=== PATIENT | male | born 1960 | race African-American/Black ===

== ENCOUNTER 2018-06-08 08:45 | Inpatient (IN) | payer OTHER ==
[2018-06-08 09:25] VITALS: BMI 25.7
--- NOTE | 2018-06-08 09:39 | HP ---
COWS - Scale Resting Pulse: 0= [place] 80 or Below Sweatin= Chills/Flushing Restless Observation: 3= Extraneous Movement Pupil Size: 1= Pupils >than Normal Bone or Joint Aches: 2= Severe Diffuse Aches Runny Nose/ Eye Tearin= Runny Nose/Eyes GI Upset > 30mins: 2= Nausea/Diarrhea Tremor Observation: 2= Slight Tremor Visible Yawning Observation: 2= >3x During Session Anxiety or Irritability: 2=Irritable/Anxious Goose Flesh Skin: 0=Smooth Skin COWS Score: 17 CIWA Score Nausea/Vomitin Muscle Tremors: 2 Anxiety: 2 Agitation: 2 Paroxysmal Sweats: 1-Minimal Palms Moist Orientation: 0-Oriented Tacttile Disturbances: 1-Very Mild Itch/Numbness Auditory Disturbances: 1-Very Mild Visual Disturbances: 0-None Headache: 2-Mild CIWA-Ar Total Score: 13 - Admission Criteria OASAS Guidelines: Admission for Medically Managed Detox: Requires at least one of the followin. CIWA greater than 12 2. Seizures within the past 24 hours 3. Delirium tremens within the past 24 hours 4. Hallucinations within the past 24 hours 5. Acute intervention needed for co occurring medical disorder 6. Acute intervention needed for co occurring psychiatric disorder 7. Severe withdrawal that cannot be handled at a lower level of care (continued vomiting, continued diarrhea, abnormal vital signs) requiring intravenous medication and/or fluids 8. Patient presents the following: CIWA greater than 12 Admission Criteria Met: Admission criteria met Admission ROS [facility] Chief Complaint: i need help to stop using heroin ,alcohol,cocaine Allergies/Adverse Reactions: Allergies Allergy/AdvReac Type Severity Reaction Status Date / Time penicillin G Allergy Severe Hives Verified 06/08/18 09:51 History of Present Illness: this 57 years old male with heroin,alcohol and cociane dependence,seeking detox, withdrawal symptom,last detox in 2018 in [place] nicotine dependence weight loss longest period of sobriety 3 years multiple admissions in detox but keep relapsing low back pain,left sciatica - Ebola screening Have you traveled outside of the country in the last 21 days: No (N) Have you had contact with anyone from an Ebola affected area: No Have you been sick,other than usual withdrawal symptoms: No Do you have a fever: No - Review of Systems Constitutional: Chills, Loss of Appetite, Malaise, Night Sweats, Changes in sleep, Weakness, Unintentional Wgt. Loss EENT: reports: Tearing, Nose Congestion Respiratory: reports: No Symptoms reported Cardiac: reports: No Symptoms Reported GI: reports: Diarrhea, Nausea, Vomiting, Abdominal cramping Musculoskeletal: reports: Back Pain, Joint Pain, Muscle Pain, Joint Stiffness Integumentary: reports: Dryness Neuro: reports: Headache, Tremors Endocrine: reports: No Symptoms Reported Hematology: reports: No Symptoms Reported Psychiatric: reports: No Sypmtoms Reported, Judgement Intact, Mood/Affect Appropiate, Orientated x3 Other Systems: Reviewed and Negative Patient History - Patient Medical History Hx Anemia: No Hx Asthma: No Hx Chronic Obstructive Pulmonary Disease (COPD): No Hx Cancer: No Hx Cardiac Disorders: No Hx Hypertension: No Hx Hypercholesterolemia: No Hx Pacemaker: No HX Cerebrovascular Accident: No Hx Seizures: No Hx Dementia: No Hx Diabetes: No Hx Gastrointestinal Disorders: No Hx Liver Disease: No Hx Genitourinary Disorders: No Hx Sexually Transmitted Disorders: No Hx Renal Disease (ESRD): No Hx Thyroid Disease: No Hx Human Immunodeficiency Virus (HIV): No (last 03/25 negative) Hx Hepatitis C: No Hx Depression: No Hx Suicide Attempt: No (denies) Hx Bipolar Disorder: No Hx Schizophrenia: No Other Medical History: no suicidal,no homicidal - Patient Surgical History Past Surgical History: No Hx Neurologic Surgery: No Hx Cataract Extraction: No Hx Cardiac Surgery: No Hx Lung Surgery: No Hx Breast Surgery: No Hx Breast Biopsy: No Hx Abdominal Surgery: No Hx Appendectomy: No Hx Cholecystectomy: No Hx Genitourinary Surgery: No Hx Section: No Hx Orthopedic Surgery: No Anesthesia Reaction: No - PPD History Documented Results: Negative w/o proof Implanted On Prior [facility] Admission?: Yes Date: 09/16/15 PPD to be Administered?: Yes - Smoking Cessation Smoking history: Current every day smoker Have you smoked in the past 12 months: Yes Aproximately how many cigarettes per day: 10 Hx Chewing Tobacco Use: No Initiated information on smoking cessation: Yes 'Breaking Loose' booklet given: 06/08/18 - Substance & Tx. History Hx Alcohol Use: Yes Hx Substance Use: Yes Substance Use Type: Alcohol, Cocaine, Heroin Hx Substance Use Treatment: Yes (2017 not completed) - Substances Abused Heroin Route: Inhalation Frequency: Daily Amount used: 7 bags Age of first use: 19 Date of Last Use: 06/07/18 Alcohol Route: Oral Frequency: Daily Amount used: 1/2 pint of hennesy/2 of 16 ozs of beer Age of first use: 12 Date of Last Use: 06/07/18 Cocaine Route: Smoking Frequency: 1-2 times per week Amount used: 100$ Age of first use: 22 Date of Last Use: 06/07/18 Family Disease History - Family Disease History Family Disease History: Other: Mother (dsa ) Admission Physical Exam [facility] - Vital Signs Vital Signs: Vital Signs - 24 hr 06/08/18 09:24 Temperature 98.1 F Pulse Rate 69 Respiratory 20 Rate Blood Pressure 122/77 - Physical General Appearance: Yes: Moderate Distress, Tremorous, Irritable, Sweating, Anxious HEENTM: Yes: Normal ENT Inspection, Normocephalic, BELKYS, Pharynx Normal Respiratory: Yes: Within Normal Limits, Lungs Clear, Normal Breath Sounds Neck: Yes: Within Normal Limits, Supple, Trachea in good position Breast: Yes: Within Normal Limits, Surgical Scar Cardiology: Yes: Within Normal Limits, Regular Rhythm, S1, S2 Abdominal: Yes: Within Normal Limits, Normal Bowel Sounds, Non Tender, Flat, Soft Genitourinary: Yes: Within Normal Limits Back: Yes: Muscle Spasm Musculoskeletal: Yes: full range of Motion, Back pain, Joint Stiffness, Muscle Pain Extremities: Yes: Within Normal Limits, Normal Range of Motion, Tremors Neurological: Yes: park 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 supervisor II-XII NML intact, Fully Oriented, Alert, Motor Strength 5/5 Integumentary: Yes: Dry Lymphatic: Yes: Within Normal Limits - Diagnostic (1) Opioid dependence with withdrawal Current Visit: No Status: Chronic (2) Nicotine dependence Current Visit: No Status: Chronic Qualifiers: Nicotine product type: cigarettes Substance use status: uncomplicated Qualified Code(s): F17.210 - Nicotine dependence, cigarettes, uncomplicated (3) Alcohol dependence with uncomplicated withdrawal Current Visit: Yes Status: Acute (4) Low back pain Current Visit: Yes Status: Acute (5) Sciatica of left side Current Visit: Yes Status: Acute (6) Cocaine dependence Current Visit: Yes Status: Acute (7) Weight loss Current Visit: Yes Status: Acute Cleared for Admission [facility] - Detox or Rehab [facility] Level of Care: Medically Managed Detox Regimen/Protocol: Methadone/Librium [facility] Breath Alcohol Content Breath Alcohol Content: 0 Urine Drug Screen - Results Drug Screen Negative: No Urine Drug Screen Results: MELINDA-Cocaine, OPI-Opiates, MTD-Methadone, FEN-Fentanyl
[2018-06-08] MEDS ORDERED: MAGNESIUM CITRATE 300 ML BOTTLE PO PRN (09:51)
[2018-06-08] MEDS ORDERED: MAG HYDROX/AL HYDROX/SIMETH 30 ML UNIT-DOSE CUP PO PRN (09:51)
[2018-06-08] MEDS ORDERED: MENTHOL/PHENOL 1 EACH UD MM PRN (09:51)
[2018-06-08] MEDS ORDERED: LOPERAMIDE HCL 2 MG CAPSULE PO PRN (09:51)
[2018-06-08] MEDS ORDERED: guaiFENesin/D-METHORPHAN HB 10 ML UNIT-DOSE CUPS PO PRN (09:51)
[2018-06-08] MEDS ORDERED: P-EPHED 60MG/TRIPROLIDI 2.5MG TABLET PO PRN (09:51)
[2018-06-08] MEDS ORDERED: NICOTINE POLACRILEX 2 MG GUM BC PRN (09:51)
[2018-06-08] MEDS ORDERED: IBUPROFEN 400 MG TABLET (FP) PO PRN (09:51)
[2018-06-08] MEDS ORDERED: ACETAMINOPHEN 325 MG TABLET (FP) PO PRN (09:51)
[2018-06-08] MEDS ORDERED: chlordiazePOXIDE HCL 25 MG CAPSULE PO PRN (09:51)
[2018-06-08] MEDS ORDERED: MAGNESIUM HYDROX 2400MG/30ML ORAL SUSPENSION 30 ML CUP PO PRN (09:51)
[2018-06-08] MEDS ORDERED: METHADONE HCL 10 MG TABLET (FOR DETOX USE ONLY) PO ONE ×2 (10:30→23:00)
[2018-06-08] MEDS: CYCLOBENZAPRINE HCL 10 MG TABLET (FP) PO PRN (11:52)
[2018-06-08] MEDS: cloNIDine HCL 0.1 MG TABLET PO SCH ×2 (11:52→22:23)
[2018-06-08] MEDS: NICOTINE 21 MG/24 HOURS TOPICAL PATCH TD SCH (11:53)
[2018-06-08] MEDS: PRENATAL VITAMINS W/ FOLIC ACID TABLET (FP) PO SCH (11:53)
[2018-06-08] MEDS: chlordiazePOXIDE HCL 25 MG CAPSULE PO SCH ×3 (11:53→22:22)
[2018-06-08] MEDS: THIAMINE HCL 100 MG TABLET (FP) PO SCH (22:23)
[2018-06-08] MEDS: MELATONIN 5 MG TABLETS PO PRN (22:25)
[2018-06-09] MEDS: chlordiazePOXIDE HCL 25 MG CAPSULE PO SCH ×4 (05:44→22:12)
--- NOTE | 2018-06-09 09:50 | PN ---
S CIWA - CIWA Score Nausea/Vomitin-Mild Nausea/No Vomiting Muscle Tremors: 4-Moderate,w/Arms Extend Anxiety: 2 Agitation: 4-Moderately Restless Paroxysmal Sweats: 1-Minimal Palms Moist Orientation: 0-Oriented Tacttile Disturbances: 0-None Auditory Disturbances: 0-None Visual Disturbances: 0-None Headache: 2-Mild CIWA-Ar Total Score: 14 [facility] COWS - Scale Resting Pulse: 0= [place] 80 or Below Sweatin= Chills/Flushing Restless Observation: 1= Difficult to Sit Still Pupil Size: 0= Normal to Room Light Bone or Joint Aches: 2= Severe Diffuse Aches Runny Nose/ Eye Tearin= Nasal Congestion GI Upset > 30mins: 2= Nausea/Diarrhea Tremor Observation of Outstretched Hands: 2= Slight Tremor Visible Yawning Observation: 2= >3x During Session Anxiety or Irritability: 2=Irritable/Anxious Goose Flesh Skin: 0=Smooth Skin COWS Score: 13 S Progress Note (SOAP) Subjective: tremor body aches sweat muscle aches trouble sleep at night Objective: 06/09/18 16:04 Vital Signs Temperature 96.1 F L 06/09/18 13:42 Pulse Rate 70 06/09/18 13:42 Respiratory Rate 18 06/09/18 13:42 Blood Pressure 99/64 06/09/18 13:42 O2 Sat by Pulse Oximetry (%) Laboratory Last Values WBC 6.4 K/mm3 (4.0-10.0) 06/09/18 08:00 RBC 4.69 M/mm3 (4.00-5.60) 06/09/18 08:00 Hgb 12.8 GM/dL (11.7-16.9) 06/09/18 08:00 Hct 40.6 % (35.4-49) 06/09/18 08:00 MCV 86.7 fl (80-96) 06/09/18 08:00 MCH 27.3 pg (25.7-33.7) 06/09/18 08:00 MCHC 31.5 g/dl (32.0-35.9) L 06/09/18 08:00 RDW 14.1 % (11.9-15.9) 06/09/18 08:00 Plt Count 198 K/MM3 (134-434) 06/09/18 08:00 MPV 9.5 fl (7.5-11.1) 06/09/18 08:00 Sodium 140 mmol/L (136-145) 06/09/18 08:00 Potassium 3.9 mmol/L (3.5-5.1) 06/09/18 08:00 Chloride 106 mmol/L (98-107) 06/09/18 08:00 Carbon Dioxide 29 mmol/L (21-32) 06/09/18 08:00 Anion Gap 5 MMOL/L (8-16) L 06/09/18 08:00 BUN 12 mg/dL (7-18) 06/09/18 08:00 Creatinine 1.0 mg/dL (0.55-1.3) 06/09/18 08:00 Creat Clearance w eGFR > 60 (>60) 06/09/18 08:00 Random Glucose 108 mg/dL (74-106) H 06/09/18 08:00 Calcium 8.6 mg/dL (8.5-10.1) 06/09/18 08:00 Total Bilirubin 0.3 mg/dL (0.2-1) 06/09/18 08:00 AST 17 U/L (15-37) 06/09/18 08:00 ALT 20 U/L (13-61) 06/09/18 08:00 Alkaline Phosphatase 49 U/L (45-117) 06/09/18 08:00 Total Protein 6.3 g/dl (6.4-8.2) L 06/09/18 08:00 Albumin 3.1 g/dl (3.4-5.0) L 06/09/18 08:00 RPR Titer Nonreactive (NONREACTIVE) 06/09/18 08:00 lab noted Assessment: 06/09/18 16:04 withdrawal sx Plan: continue detox
[2018-06-09] MEDS ORDERED: METHADONE HCL 10 MG TABLET (FOR DETOX USE ONLY) PO SCH (10:00)
[2018-06-09 10:09] LABS: HEMATOCRIT 40.6 % (35.4-49); HEMOGLOBIN 12.8 GM/dL (11.7-16.9); MCH 27.3 pg (25.7-33.7); MCHC 31.5 g/dl (32.0-35.9); MEAN CELL VOLUME 86.7 fl (80-96); MEAN PLT VOLUME 9.5 fl (7.5-11.1); PLATELET COUNT 198 K/MM3 (134-434); RBC 4.69 M/mm3 (4.00-5.60); RDW 14.1 % (11.9-15.9); WHITE BLOOD COUNT 6.4 K/mm3 (4.0-10.0)
[2018-06-09] MEDS: PRENATAL VITAMINS W/ FOLIC ACID TABLET (FP) PO SCH (10:33)
[2018-06-09] MEDS: cloNIDine HCL 0.1 MG TABLET PO SCH ×2 (10:33→22:12)
[2018-06-09] MEDS: NICOTINE 21 MG/24 HOURS TOPICAL PATCH TD SCH (10:34)
[2018-06-09 11:26] LABS: ALBUMIN 3.1 g/dl (3.4-5.0); ALK PHOS 49 U/L (45-117); ANION GAP 5 MMOL/L (8-16); BILIRUBIN,TOTAL 0.3 mg/dL (0.2-1); BLOOD UREA NITROGEN 12 mg/dL (7-18); CALCIUM 8.6 mg/dL (8.5-10.1); CHLORIDE 106 mmol/L (98-107); CO2 29 mmol/L (21-32); GLUCOSE,RANDOM 108 mg/dL (74-106); POTASSIUM 3.9 mmol/L (3.5-5.1); SGOT/AST 17 U/L (15-37); SGPT/ALT 20 U/L (13-61); SODIUM 140 mmol/L (136-145); TOT PROT 6.3 g/dl (6.4-8.2)
[2018-06-09] MEDS: THIAMINE HCL 100 MG TABLET (FP) PO SCH (22:11)
[2018-06-09] MEDS: MELATONIN 5 MG TABLETS PO PRN (22:12)
[2018-06-10] MEDS: chlordiazePOXIDE HCL 25 MG CAPSULE PO SCH (05:40)
[2018-06-10] MEDS: cloNIDine HCL 0.1 MG TABLET PO SCH ×2 (10:22→22:20)
[2018-06-10] MEDS: METHADONE HCL 5 MG TABLET (FOR DETOX USE ONLY) PO SCH (10:22)
[2018-06-10] MEDS: PRENATAL VITAMINS W/ FOLIC ACID TABLET (FP) PO SCH (10:22)
[2018-06-10] MEDS: chlordiazePOXIDE 5 MG CAPSULE PO SCH ×3 (10:22→22:19)
[2018-06-10] MEDS: NICOTINE 21 MG/24 HOURS TOPICAL PATCH TD SCH (11:50)
--- NOTE | 2018-06-10 14:08 | PN ---
S CIWA - CIWA Score Nausea/Vomitin-No Nausea/No Vomiting Muscle Tremors: 4-Moderate,w/Arms Extend Anxiety: 3 Agitation: 2 Paroxysmal Sweats: 1-Minimal Palms Moist Orientation: 0-Oriented Tacttile Disturbances: 0-None Auditory Disturbances: 0-None Visual Disturbances: 0-None Headache: 2-Mild CIWA-Ar Total Score: 12 [facility] COWS - Scale Resting Pulse: 0= [place] 80 or Below Sweatin= Chills/Flushing Restless Observation: 0= Sits Still Pupil Size: 0= Normal to Room Light Bone or Joint Aches: 1= Mild Discomfort Runny Nose/ Eye Tearin= Nasal Congestion GI Upset > 30mins: 1= Stomach Cramp Tremor Observation of Outstretched Hands: 1= Tremor Michie, Not Seen Yawning Observation: 2= >3x During Session Anxiety or Irritability: 1=Feels Anxious/Irritable Goose Flesh Skin: 0=Smooth Skin COWS Score: 8 S Progress Note (SOAP) Subjective: joints pain tremor sweat body aches muscle cramp Objective: 06/10/18 14:12 Vital Signs Temperature 99.1 F 06/10/18 13:13 Pulse Rate 74 06/10/18 13:13 Respiratory Rate 18 06/10/18 13:13 Blood Pressure 112/75 06/10/18 13:13 O2 Sat by Pulse Oximetry (%) Laboratory Last Values WBC 6.4 K/mm3 (4.0-10.0) 06/09/18 08:00 RBC 4.69 M/mm3 (4.00-5.60) 06/09/18 08:00 Hgb 12.8 GM/dL (11.7-16.9) 06/09/18 08:00 Hct 40.6 % (35.4-49) 06/09/18 08:00 MCV 86.7 fl (80-96) 06/09/18 08:00 MCH 27.3 pg (25.7-33.7) 06/09/18 08:00 MCHC 31.5 g/dl (32.0-35.9) L 06/09/18 08:00 RDW 14.1 % (11.9-15.9) 06/09/18 08:00 Plt Count 198 K/MM3 (134-434) 06/09/18 08:00 MPV 9.5 fl (7.5-11.1) 06/09/18 08:00 Sodium 140 mmol/L (136-145) 06/09/18 08:00 Potassium 3.9 mmol/L (3.5-5.1) 06/09/18 08:00 Chloride 106 mmol/L (98-107) 06/09/18 08:00 Carbon Dioxide 29 mmol/L (21-32) 06/09/18 08:00 Anion Gap 5 MMOL/L (8-16) L 06/09/18 08:00 BUN 12 mg/dL (7-18) 06/09/18 08:00 Creatinine 1.0 mg/dL (0.55-1.3) 06/09/18 08:00 Creat Clearance w eGFR > 60 (>60) 06/09/18 08:00 Random Glucose 108 mg/dL (74-106) H 06/09/18 08:00 Calcium 8.6 mg/dL (8.5-10.1) 06/09/18 08:00 Total Bilirubin 0.3 mg/dL (0.2-1) 06/09/18 08:00 AST 17 U/L (15-37) 06/09/18 08:00 ALT 20 U/L (13-61) 06/09/18 08:00 Alkaline Phosphatase 49 U/L (45-117) 06/09/18 08:00 Total Protein 6.3 g/dl (6.4-8.2) L 06/09/18 08:00 Albumin 3.1 g/dl (3.4-5.0) L 06/09/18 08:00 RPR Titer Nonreactive (NONREACTIVE) 06/09/18 08:00 lab noted ua pending 06/10/18 14:13 Assessment: 06/10/18 14:13 withdrawal sx Plan: continue detox
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
[2018-06-10 21:23] LABS: URINE APPEARANCE CLOUDY; URINE BILIRUBIN NEGATIVE (<2.0 mg/dL); URINE COLOR YELLOW; URINE GLUCOSE (UA) NEGATIVE (NEGATIVE); URINE KETONE NEGATIVE (NEGATIVE); URINE LEUK ESTERASE TRACE (NEGATIVE); URINE NITRITE NEGATIVE (NEGATIVE); URINE PROTEIN NEGATIVE (NEGATIVE); URINE UROBILINOGEN NEGATIVE mg/dL (0.2-1.0)
[2018-06-10 21:27] LABS: EPI CELLS RARE /HPF (FEW); URINE MUCUS RARE
[2018-06-10] MEDS: MELATONIN 5 MG TABLETS PO PRN (22:19)
[2018-06-10] MEDS: THIAMINE HCL 100 MG TABLET (FP) PO SCH (22:19)
[2018-06-11] MEDS: chlordiazePOXIDE 5 MG CAPSULE PO SCH (05:42)
[2018-06-11 06:40] VITALS: BP 113/61; PULSE 66; TEMP 97.3
[2018-06-11] MEDS: NICOTINE 21 MG/24 HOURS TOPICAL PATCH TD SCH (10:33)
[2018-06-11] MEDS: METHADONE HCL 5 MG TABLET (FOR DETOX USE ONLY) PO SCH (10:33)
[2018-06-11] MEDS: CYCLOBENZAPRINE HCL 10 MG TABLET (FP) PO PRN (10:33)
[2018-06-11] MEDS: cloNIDine HCL 0.1 MG TABLET PO SCH (10:33)
[2018-06-11] MEDS: PRENATAL VITAMINS W/ FOLIC ACID TABLET (FP) PO SCH (10:33)
[2018-06-11] MEDS ORDERED: chlordiazePOXIDE HCL 10 MG CAPSULE PO SCH (11:00)
--- NOTE | 2018-06-11 16:18 | DS ---
[facility] Detox Discharge Summary Admission Date: 06/08/18 PATIENT WALKED OFF UNIT STATING HE WANTED TO LEAVE AMA. SECURITY AND HEATER HELPER FORGE INTERVENED AND SPOKE WITH PATIENT REGARDING HOSPITAL PROTOCOL. HEATER HELPER FORGE ALSO SPOKE WITH PATIENT REGARDING RISK FACTORS OF RELAPSE WITH SIGNING OUT AMA. PATIENT ENCOURAGED TO COMPLETE DETOX BUT REFUSED. PATIENT STATES HE WANTS TO GO TO ANOTHER PROGRAM THAT HE FEELS SICK HERE. PATIENT OFFERED TO ADDRESS SYMPTOMS ON UNIT BUT CONTINUED WITH AMA PROCESS. AMA FORMS SIGNED. PATIENT REFUSED NARCAN KIT. PATIENT ADVISED TO SEEK MEDICAL ATTENTION IF WITHDRAWAL SX BECOME SEVERE. Discharge Date: 06/11/18 - History Present History: Alcohol Dependence, Cannabis Dependence, Opioid Dependence Additional Comments: PATIENT WALKED OFF UNIT STATING HE WANTED TO LEAVE AMA. SECURITY AND HEATER HELPER FORGE INTERVENED AND SPOKE WITH PATIENT REGARDING HOSPITAL PROTOCOL. HEATER HELPER FORGE ALSO SPOKE WITH PATIENT REGARDING RISK FACTORS OF RELAPSE WITH SIGNING OUT AMA. PATIENT ENCOURAGED TO COMPLETE DETOX BUT REFUSED. PATIENT STATES HE WANTS TO GO TO ANOTHER PROGRAM THAT HE FEELS SICK HERE. PATIENT OFFERED TO ADDRESS SYMPTOMS ON UNIT BUT CONTINUED WITH AMA PROCESS. AMA FORMS SIGNED. PATIENT REFUSED NARCAN KIT. PATIENT ADVISED TO SEEK MEDICAL ATTENTION IF WITHDRAWAL SX BECOME SEVERE. - Physical Exam Results Vital Signs: Vital Signs Temperature 97.3 F L 06/11/18 06:39 Pulse Rate 66 06/11/18 06:39 Respiratory Rate 18 06/11/18 06:39 Blood Pressure 113/61 06/11/18 06:39 O2 Sat by Pulse Oximetry (%) - Medication Discharge Medications: Ambulatory Orders NK [No Known Home Medication] 09/14/15 - AMA Did Patient Leave Against Medical Advice: Yes
[2018-06-12] MEDS ORDERED: METHADONE HCL 10 MG TABLET (FOR DETOX USE ONLY) PO SCH (10:00)
[2018-06-13] MEDS ORDERED: METHADONE HCL 5 MG TABLET (FOR DETOX USE ONLY) PO SCH (06:00)
== END 2018-06-11 12:00 | disposition left against medical advice (07) | DRG 770 ==
LOC: YASAS 08:45 → Y3N 09:51
PROC: HZ2ZZZZ Detoxification Services for Substance Abuse Treatment (ICD-10-PCS; principal; 2018-06-08)
DX: F11.23 Opioid dependence with withdrawal (principal); F10.230 Alcohol dependence with withdrawal, uncomplicated; F14.20 Cocaine dependence, uncomplicated; F17.210 Nicotine dependence, cigarettes, uncomplicated; M54.30 Sciatica, unspecified side; Z88.0 Allergy status to penicillin; Y04.0XXA Assault by unarmed brawl or fight, initial encounter; Y93.89 Activity, other specified; Y92.239 Unspecified place in hospital as the place of occurrence of the external cause; Z59.0 Homelessness
CPT/HCPCS: 36415; 80053; 81003; 81015; 85027; 86593; J0735

== ENCOUNTER 2018-12-14 08:49 | Inpatient (IN) | payer OTHER ==
[2018-12-14 09:44] VITALS: BMI 22.5
--- NOTE | 2018-12-14 10:36 | HP ---
COWS - Scale Resting Pulse: 0= [place] 80 or Below Sweatin= Chills/Flushing Restless Observation: 1= Difficult to Sit Still Pupil Size: 0= Normal to Room Light Bone or Joint Aches: 2= Severe Diffuse Aches Runny Nose/ Eye Tearin= Runny Nose/Eyes GI Upset > 30mins: 1= Stomach Cramp Tremor Observation: 0= None Yawning Observation: 0= None Anxiety or Irritability: 2=Irritable/Anxious Goose Flesh Skin: 0=Smooth Skin COWS Score: 9 CIWA Score - Admission Criteria OAS Guidelines: Admission for Medically Managed Detox: Requires at least one of the followin. CIWA greater than 12 2. Seizures within the past 24 hours 3. Delirium tremens within the past 24 hours 4. Hallucinations within the past 24 hours 5. Acute intervention needed for co occurring medical disorder 6. Acute intervention needed for co occurring psychiatric disorder 7. Severe withdrawal that cannot be handled at a lower level of care (continued vomiting, continued diarrhea, abnormal vital signs) requiring intravenous medication and/or fluids 8. Admission ROS [facility] Allergies/Adverse Reactions: Allergies Allergy/AdvReac Type Severity Reaction Status Date / Time penicillin G Allergy Severe Hives Verified 12/14/18 09:38 History of Present Illness: pt here requesting detox from heroin and cocaine use , heroin use reports 6 bags /day via inhalation since age 19 , denies significant sober time , latest use last night , current symptoms as above , missed yesterday's dose at program ( [facility] ) . cocaine : 6 bags/day tobacco : 1/2 ppd denies other illicits This report was requested by: Danica Gaona | Reference #: [id number] Others' Prescriptions Patient Name: Jose Ramon Amos Date: 1960 Address: [address] [place] [address] Sex: Male Rx Written Rx Dispensed Drug Quantity Days Supply Prescriber Name 06/03/2018 06/03/2018 suboxone 8 mg-2 mg sl film 60 20 MD Valdes Mario PMHX : denies PSHX : denies PSych : denies Meds : Methadone [facility] Life Plan , latest Thursday 120 mg , in program since May 2018 , latest taken Thursday12/12/18 , verified by RN @ 120 mg Exam Limitations: Clinical Condition - Ebola screening Have you traveled outside of the country in the last 21 days: No Have you had contact with anyone from an Ebola affected area: No - Review of Systems Constitutional: Loss of Appetite EENT: reports: Tearing Respiratory: reports: No Symptoms reported Cardiac: reports: No Symptoms Reported GI: reports: See HPI : reports: No Symptoms Reported Musculoskeletal: reports: Back Pain (chronic " sciatica ") Integumentary: reports: No Symptoms Reported Neuro: reports: See HPI Endocrine: reports: No Symptoms Reported Psychiatric: reports: Orientated x3, Anxious Patient History - Patient Medical History Hx Anemia: No Hx Asthma: No Hx Chronic Obstructive Pulmonary Disease (COPD): No Hx Cancer: No Hx Cardiac Disorders: No Hx Hypertension: No Hx Hypercholesterolemia: No Hx Pacemaker: No HX Cerebrovascular Accident: No Hx Seizures: No Hx Dementia: No Hx Diabetes: No Hx Gastrointestinal Disorders: No Hx Liver Disease: No Hx Genitourinary Disorders: No Hx Sexually Transmitted Disorders: No Hx Renal Disease (ESRD): No Hx Thyroid Disease: No Hx Human Immunodeficiency Virus (HIV): No (last 03/25 negative) Hx Hepatitis C: No Hx Depression: No Hx Suicide Attempt: No (denies) Hx Bipolar Disorder: No Hx Schizophrenia: No - Patient Surgical History Past Surgical History: No Hx Neurologic Surgery: No Hx Cataract Extraction: No Hx Cardiac Surgery: No Hx Lung Surgery: No Hx Breast Surgery: No Hx Breast Biopsy: No Hx Abdominal Surgery: No Hx Appendectomy: No Hx Cholecystectomy: No Hx Genitourinary Surgery: No Hx Section: No Hx Orthopedic Surgery: No Anesthesia Reaction: No - PPD History Date: 06/10/18 - Smoking Cessation Smoking history: Current every day smoker Have you smoked in the past 12 months: Yes Aproximately how many cigarettes per day: 10 Hx Chewing Tobacco Use: No Initiated information on smoking cessation: No - Substances abused Heroin Substance route: Inhalation Frequency: Daily Amount used: 5 BAGS Age of first use: 19 Date of last use: 12/13/18 Crack Substance route: Smoking Frequency: Daily Amount used: 5 BAGS Age of first use: 23 Date of last use: 12/13/18 Family Disease History - Family Disease History Family Disease History: Other: Mother (dsa ) Admission Physical Exam [facility] - Vital Signs Vital Signs: Vital Signs - 24 hr 12/14/18 09:37 Temperature 98.0 F Pulse Rate 73 Respiratory 17 Rate Blood Pressure 134/77 - Physical General Appearance: Yes: Mild Distress, Anxious HEENTM: Yes: Normocephalic, Normal Voice Respiratory: Yes: Lungs Clear, Normal Breath Sounds, No Respiratory Distress, No Accessory Muscle Use Neck: Yes: No masses,lesions,Nodules, Trachea in good position Cardiology: Yes: Regular Rhythm, Regular Rate, S1, S2 Abdominal: Yes: Non Tender, Soft Musculoskeletal: Yes: full range of Motion, Gait Steady Extremities: Yes: Normal Range of Motion, Non-Tender Neurological: Yes: Fully Oriented, Alert, Motor Strength 5/5 Integumentary: Yes: Warm - Diagnostic (1) Opioid dependence on agonist therapy Current Visit: Yes Status: Chronic (2) Cocaine dependence Current Visit: Yes Status: Chronic Qualifiers: Substance use status: uncomplicated Qualified Code(s): F14.20 - Cocaine dependence, uncomplicated Breathalyzer - Breathalyzer Breathalyzer: 0 Urine Drug Screen - Test Device Lot number: [id number] Expiration date: 10/05/20 - Control Is test valid?: Yes - Results Drug screen NEGATIVE: No Urine drug screen results: MELINDA-Cocaine, MOP-Opiates, MTD-Methadone Inpatient Rehab Admission - Rehab Decision to Admit Inpatient rehab admission?: Yes - Initial Determination Are CD services needed?: Yes Free of communicable disease: Yes Not in need of hospitalization: Yes - Rehab Admission Criteria Previous failed treatment: Yes Poor recovery environment: Yes Comorbidities: No Lacks judgement: Yes Patient is meeting Inpatient Rehab admission criteria:: Yes
[2018-12-14] MEDS ORDERED: MAG HYDROX/AL HYDROX/SIMETH 30 ML UNIT-DOSE CUP PO PRN (11:21)
[2018-12-14] MEDS ORDERED: MAGNESIUM CITRATE 300 ML BOTTLE PO PRN (11:21)
[2018-12-14] MEDS ORDERED: MAGNESIUM HYDROX 2400MG/30ML ORAL SUSPENSION 30 ML CUP PO PRN (11:21)
[2018-12-14] MEDS ORDERED: hydrOXYzine PAMOATE 25 MG CAPSULE (FP) PO PRN (11:21)
[2018-12-14] MEDS ORDERED: P-EPHED 60MG/TRIPROLIDI 2.5MG TABLET PO PRN (11:21)
[2018-12-14] MEDS ORDERED: MENTHOL/PHENOL 1 EACH UD MM PRN (11:21)
[2018-12-14] MEDS ORDERED: guaiFENesin 200 MG/10 ML 10 ML UNIT-DOSE CUPS PO PRN (11:21)
[2018-12-14] MEDS ORDERED: METHADONE HCL 40 MG DISPERSABLE TABLET PO ONE (12:00)
[2018-12-14 14:39] LABS: HEMATOCRIT 44.9 % (35.4-49); HEMOGLOBIN 14.4 GM/dL (11.7-16.9); MCHC 32.1 g/dl (32.0-35.9); MEAN CELL VOLUME 84.3 fl (80-96); MEAN PLT VOLUME 9.7 fl (7.5-11.1); PLATELET COUNT 278 K/MM3 (134-434); RBC 5.33 M/mm3 (4.00-5.60); RDW 15.4 % (11.9-15.9); WHITE BLOOD COUNT 8.6 K/mm3 (4.0-10.0)
[2018-12-14 15:52] LABS: ALBUMIN 3.7 g/dl (3.4-5.0); BILIRUBIN,TOTAL 0.2 mg/dL (0.2-1); BLOOD UREA NITROGEN 17.5 mg/dL (7-18); CALCIUM 9.4 mg/dL (8.5-10.1); POTASSIUM 4.8 mmol/L (3.5-5.1); TOT PROT 8.2 g/dl (6.4-8.2)
[2018-12-14 17:22] LABS: URINE APPEARANCE CLEAR; URINE BILIRUBIN NEGATIVE (NEGATIVE); URINE COLOR YELLOW; URINE GLUCOSE (UA) NEGATIVE (NEGATIVE); URINE KETONE NEGATIVE (NEGATIVE); URINE LEUK ESTERASE NEGATIVE (NEGATIVE); URINE NITRITE NEGATIVE (NEGATIVE); URINE PROTEIN NEGATIVE (NEGATIVE)
[2018-12-14] MEDS: THIAMINE HCL 100 MG TABLET (FP) PO SCH (22:10)
[2018-12-15] MEDS: METHADONE HCL 40 MG DISPERSABLE TABLET PO SCH (06:08)
[2018-12-15] MEDS: PRENATAL VITAMINS W/ FOLIC ACID TABLET (FP) PO SCH (10:08)
[2018-12-15] MEDS: THIAMINE HCL 100 MG TABLET (FP) PO SCH (22:01)
[2018-12-16] MEDS: METHADONE HCL 40 MG DISPERSABLE TABLET PO SCH (06:10)
[2018-12-16] MEDS: PRENATAL VITAMINS W/ FOLIC ACID TABLET (FP) PO SCH (10:15)
[2018-12-16] MEDS: THIAMINE HCL 100 MG TABLET (FP) PO SCH (22:16)
[2018-12-17] MEDS: METHADONE HCL 40 MG DISPERSABLE TABLET PO SCH (06:16)
[2018-12-17] MEDS: PRENATAL VITAMINS W/ FOLIC ACID TABLET (FP) PO SCH (10:03)
[2018-12-17] MEDS: IBUPROFEN 400 MG TABLET (FP) PO PRN ×2 (13:57→22:10)
[2018-12-17] MEDS ORDERED: METHOCARBAMOL 500 MG TABLET PO ONE (14:25)
--- NOTE | 2018-12-17 14:31 | PN ---
[facility] Progress Note (SOAP) Subjective: pt c/o severe lower back pain, 8/10 scale. Reports hx of lower back pain especially left hip and sciatica. Worse when sitting down. Ambulating slowly due to pain. Objective: 12/17/18 14:27 Vital Signs 12/17/18 06:57 Temperature 97.1 F L Pulse Rate 63 Respiratory 16 Rate Blood Pressure 117/74 Laboratory Tests 12/14/18 12/14/18 12/14/18 12:00 12:00 12:00 WBC 8.6 RBC 5.33 Hgb 14.4 Hct 44.9 MCV 84.3 MCH 27.0 MCHC 32.1 RDW 15.4 Plt Count 278 D MPV 9.7 Sodium 139 Potassium 4.8 Chloride 105 Carbon Dioxide 28 Anion Gap 6 L BUN 17.5 Creatinine 1.0 Est GFR (CKD-EPI)AfAm 95.73 Est GFR (CKD-EPI)NonAf 82.60 Random Glucose 108 H Calcium 9.4 Total Bilirubin 0.2 AST 22 ALT 29 Alkaline Phosphatase 73 Total Protein 8.2 Albumin 3.7 Urine Color Urine Appearance Urine pH Ur Specific [place] Urine Protein Urine Glucose (UA) Urine Ketones Urine Blood Urine Nitrite Urine Bilirubin Urine Urobilinogen Ur Leukocyte Esterase RPR Titer Nonreactive 12/14/18 15:50 WBC RBC Hgb Hct MCV MCH MCHC RDW Plt Count MPV Sodium Potassium Chloride Carbon Dioxide Anion Gap BUN Creatinine Est GFR (CKD-EPI)AfAm Est GFR (CKD-EPI)NonAf Random Glucose Calcium Total Bilirubin AST ALT Alkaline Phosphatase Total Protein Albumin Urine Color Yellow Urine Appearance Clear Urine pH 5.0 Ur Specific [place] 1.023 Urine Protein Negative Urine Glucose (UA) Negative Urine Ketones Negative Urine Blood Negative Urine Nitrite Negative Urine Bilirubin Negative Urine Urobilinogen 1.0 Ur Leukocyte Esterase Negative RPR Titer Hip:Limited ROM on touching toe movement. Extremities:No e/c/c Assessment: 12/17/18 14:30 chronic lower back/left hip pain Sciatica Plan: Robaxin 500 mg po tid lidocaine patch as directed. increase po fluids maintain safety
[2018-12-17] MEDS: LIDOCAINE 5% TOPICAL PATCH TP SCH (14:45)
[2018-12-17] MEDS: THIAMINE HCL 100 MG TABLET (FP) PO SCH (22:08)
[2018-12-17] MEDS: LIDOCAINE PATCH REMOVAL MC SCH (22:10)
[2018-12-17] MEDS: MELATONIN 5 MG TABLETS PO PRN (22:10)
[2018-12-17] MEDS: METHOCARBAMOL 500 MG TABLET PO SCH (22:11)
[2018-12-18] MEDS: METHADONE HCL 40 MG DISPERSABLE TABLET PO SCH (06:14)
[2018-12-18] MEDS: METHOCARBAMOL 500 MG TABLET PO SCH ×3 (06:56→23:21)
[2018-12-18] MEDS: LIDOCAINE 5% TOPICAL PATCH TP SCH (10:07)
[2018-12-18] MEDS: PRENATAL VITAMINS W/ FOLIC ACID TABLET (FP) PO SCH (10:07)
[2018-12-18] MEDS: LIDOCAINE PATCH REMOVAL MC SCH (23:20)
[2018-12-18] MEDS: THIAMINE HCL 100 MG TABLET (FP) PO SCH (23:21)
[2018-12-19] MEDS: METHADONE HCL 40 MG DISPERSABLE TABLET PO SCH (06:02)
[2018-12-19] MEDS: METHOCARBAMOL 500 MG TABLET PO SCH ×3 (06:02→21:35)
[2018-12-19] MEDS: PRENATAL VITAMINS W/ FOLIC ACID TABLET (FP) PO SCH (10:19)
[2018-12-19] MEDS: ACETAMINOPHEN 325 MG TABLET (FP) PO PRN (10:20)
[2018-12-19] MEDS: LIDOCAINE 5% TOPICAL PATCH TP SCH (10:21)
[2018-12-19] MEDS: LIDOCAINE PATCH REMOVAL MC SCH (21:26)
[2018-12-19] MEDS: IBUPROFEN 400 MG TABLET (FP) PO PRN (21:27)
[2018-12-19] MEDS: THIAMINE HCL 100 MG TABLET (FP) PO SCH (21:35)
[2018-12-20] MEDS: MELATONIN 5 MG TABLETS PO PRN (01:40)
[2018-12-20] MEDS: ACETAMINOPHEN 325 MG TABLET (FP) PO PRN (01:40)
[2018-12-20] MEDS: METHOCARBAMOL 500 MG TABLET PO SCH ×3 (05:52→22:02)
[2018-12-20] MEDS: METHADONE HCL 40 MG DISPERSABLE TABLET PO SCH (05:52)
[2018-12-20] MEDS: LIDOCAINE 5% TOPICAL PATCH TP SCH (10:00)
[2018-12-20] MEDS: PRENATAL VITAMINS W/ FOLIC ACID TABLET (FP) PO SCH (10:01)
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
[2018-12-20] MEDS: BACITRACIN 15 GM TUBE TOPICAL OINTMENT TP SCH ×2 (15:37→22:01)
[2018-12-20] MEDS: LIDOCAINE PATCH REMOVAL MC SCH (22:01)
[2018-12-20] MEDS: THIAMINE HCL 100 MG TABLET (FP) PO SCH (22:02)
[2018-12-21] MEDS ORDERED: METHADONE HCL 40 MG DISPERSABLE TABLET PO SCH (06:00)
[2018-12-21] MEDS: BACITRACIN 15 GM TUBE TOPICAL OINTMENT TP SCH (06:05)
[2018-12-21] MEDS: METHOCARBAMOL 500 MG TABLET PO SCH (06:06)
[2018-12-21 06:45] VITALS: BP 132/87; PULSE 61; TEMP 98
[2018-12-21] MEDS: PRENATAL VITAMINS W/ FOLIC ACID TABLET (FP) PO SCH (09:16)
[2018-12-21] MEDS: LIDOCAINE 5% TOPICAL PATCH TP SCH (09:16)
--- NOTE | 2018-12-21 10:59 | PN ---
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 WHILE IN REHAB PT ATTENDED GROUP ACTIVITIES. PT MET WITH HIS COUNSELOR, AGUILAR FLORES AND HAS BEEN REFERRED BACK TO [facility]. PT REPORTS HE HAS NO PCP BUT UTILIZED [facility] IN THE PAST FOR MEDICAL CARE AND WILL BE GOING THERE TODAY TO TAKE CARE OF HIS FEET. PT IS ALERT O X 3. DENIES S/H/I. Objective: 12/21/18 10:59 Vital Signs - 24 hr 12/21/18 12/21/18 12/21/18 00:30 03:30 06:44 Temperature 98.0 F Pulse Rate 61 Respiratory 18 18 16 Rate Blood Pressure 132/87 Laboratory Tests 12/14/18 12/14/18 12/14/18 12:00 12:00 12:00 WBC 8.6 RBC 5.33 Hgb 14.4 Hct 44.9 MCV 84.3 MCH 27.0 MCHC 32.1 RDW 15.4 Plt Count 278 D MPV 9.7 Sodium 139 Potassium 4.8 Chloride 105 Carbon Dioxide 28 Anion Gap 6 L BUN 17.5 Creatinine 1.0 Est GFR (CKD-EPI)AfAm 95.73 Est GFR (CKD-EPI)NonAf 82.60 Random Glucose 108 H Calcium 9.4 Total Bilirubin 0.2 AST 22 ALT 29 Alkaline Phosphatase 73 Total Protein 8.2 Albumin 3.7 Urine Color Urine Appearance Urine pH Ur Specific [place] Urine Protein Urine Glucose (UA) Urine Ketones Urine Blood Urine Nitrite Urine Bilirubin Urine Urobilinogen Ur Leukocyte Esterase RPR Titer Nonreactive 12/14/18 15:50 WBC RBC Hgb Hct MCV MCH MCHC RDW Plt Count MPV Sodium Potassium Chloride Carbon Dioxide Anion Gap BUN Creatinine Est GFR (CKD-EPI)AfAm Est GFR (CKD-EPI)NonAf Random Glucose Calcium Total Bilirubin AST ALT Alkaline Phosphatase Total Protein Albumin Urine Color Yellow Urine Appearance Clear Urine pH 5.0 Ur Specific [place] 1.023 Urine Protein Negative Urine Glucose (UA) Negative Urine Ketones Negative Urine Blood Negative Urine Nitrite Negative Urine Bilirubin Negative Urine Urobilinogen 1.0 Ur Leukocyte Esterase Negative RPR Titer Home Medications Medication Instructions Recorded NK [No Known Home Medication] 09/14/15 Assessment: 12/21/18 10:59 NAD MEDICALLY STABLE [facility] Inpatient Services Medical - Diagnosis (1) Callus of foot Current Visit: Yes Status: Chronic (2) Cocaine dependence Qualifiers: Substance use status: uncomplicated Qualified Code(s): F14.20 - Cocaine dependence, uncomplicated Current Visit: Yes Status: Chronic (3) Opioid dependence on agonist therapy Current Visit: Yes Status: Chronic (4) Low back pain Qualifiers: Chronicity: chronic Back pain laterality: left Sciatica laterality: sciatica of left side Current Visit: Yes Status: Acute (5) Nicotine dependence Qualifiers: Nicotine product type: cigarettes Substance use status: uncomplicated Qualified Code(s): F17.210 - Nicotine dependence, cigarettes, uncomplicated Current Visit: Yes Status: Chronic (6) H/O sciatica Current Visit: Yes Status: Chronic (7) Self-care deficit for grooming and hygiene Current Visit: Yes Status: Chronic Plan: FOLLOW UP WITH [facility] AFTERCARE RECOMMENDATION. FOLLOW UP WITH MEDICAL CARE DISCUSSED ABOVE TODAY.
== END 2018-12-21 09:45 | disposition home or self-care (01) | DRG 772 ==
LOC: YASAS 08:49 → Y5N 11:24
PROVIDERS: ADMIT Neuromusculoskeletal Medicine & OMM; ATTEND Neuromusculoskeletal Medicine & OMM
PROC: HZ42ZZZ Group Counseling for Substance Abuse Treatment, Cognitive-Behavioral (ICD-10-PCS; principal; 2018-12-14)
DX: F11.20 Opioid dependence, uncomplicated (principal); F14.20 Cocaine dependence, uncomplicated; F17.210 Nicotine dependence, cigarettes, uncomplicated; M54.42 Lumbago with sciatica, left side; G89.29 Other chronic pain; L84 Corns and callosities; M25.552 Pain in left hip; Z74.1 Need for assistance with personal care; Z88.0 Allergy status to penicillin; Z59.0 Homelessness
CPT/HCPCS: 36415; 80053; 81003; 85027; 86593

== ENCOUNTER 2021-01-21 10:49 | Inpatient (IN) | payer OTHER ==
[2021-01-21 12:46] VITALS: BMI 24.4
[2021-01-21] MEDS ORDERED: ACETAMINOPHEN 325 MG TABLET (FP) PO PRN ×2 (15:35)
[2021-01-21] MEDS ORDERED: hydrOXYzine PAMOATE 25 MG CAPSULE (FP) PO PRN (15:35)
[2021-01-21] MEDS ORDERED: BISMUTH SUBSALICYLATE 524 MG/30 ML PO PRN (15:35)
[2021-01-21] MEDS ORDERED: METHOCARBAMOL 500 MG TABLET PO PRN (15:35)
[2021-01-21] MEDS ORDERED: ONDANSETRON *ODT* 4 MG TABLET SL PRN (15:35)
[2021-01-21] MEDS ORDERED: NICOTINE 10 MG CARTRIDGE (INHALER) IH PRN (15:35)
[2021-01-21] MEDS ORDERED: MENTHOL/PHENOL 1 EACH UD MM PRN (15:35)
[2021-01-21] MEDS ORDERED: NICOTINE POLACRILEX 4 MG GUM BUC PRN (15:35)
[2021-01-21] MEDS ORDERED: MAG HYDROX/AL HYDROX/SIMETH 30 ML UNIT-DOSE CUP PO PRN (15:35)
[2021-01-21] MEDS ORDERED: MAGNESIUM CITRATE 300 ML BOTTLE PO PRN (15:35)
[2021-01-21] MEDS ORDERED: IBUPROFEN 400 MG TABLET (FP) PO PRN (15:35)
[2021-01-21] MEDS ORDERED: MAGNESIUM HYDROX 2400MG/30ML ORAL SUSPENSION 30 ML CUP PO PRN (15:35)
[2021-01-21] MEDS ORDERED: MELATONIN 5 MG TABLETS PO SCH (22:00)
[2021-01-21] MEDS ORDERED: THIAMINE HCL 100 MG TABLET (FP) PO SCH (22:00)
[2021-01-21] MEDS: MINERAL OIL/PETROLAT/WATER TOPICAL CREAM 454 GM JAR TP SCH (22:13)
[2021-01-22 09:32] VITALS: BP 144/79; PULSE 50; TEMP 97.8
[2021-01-22] MEDS ORDERED: methaDONE HCL 40 MG DISPERSABLE TABLET ONE (09:35)
[2021-01-22] MEDS ORDERED: methaDONE HCL 10 MG TABLET ONE (09:35)
[2021-01-22] MEDS ORDERED: PRENATAL VITAMINS W/ FOLIC ACID TABLET (FP) PO SCH (10:00)
[2021-01-22] MEDS ORDERED: methaDONE HCL 10 MG TABLET PO ONE (10:00)
[2021-01-22] MEDS ORDERED: NICOTINE 21 MG/24 HOURS TOPICAL PATCH TD SCH (10:00)
[2021-01-22] MEDS: MINERAL OIL/PETROLAT/WATER TOPICAL CREAM 454 GM JAR TP SCH (10:17)
[2021-01-22 11:14] LABS: HEMATOCRIT 41.5 % (35.4-49); HEMOGLOBIN 13.4 GM/dL (11.7-16.9); MCHC 32.2 g/dl (32.0-35.9); MEAN CELL VOLUME 87.1 fl (80-96); MEAN PLT VOLUME 9.3 fl (7.5-11.1); PLATELET COUNT 179 10^3/uL (134-434); RBC 4.77 M/mm3 (4.00-5.60); RDW 14.8 % (11.9-15.9); WHITE BLOOD COUNT 7.7 K/mm3 (4.0-10.0)
[2021-01-22 11:23] LABS: CALCIUM 8.8 mg/dL (8.5-10.1)
[2021-01-22 11:24] LABS: ALBUMIN 3.4 g/dl (3.4-5.0)
[2021-01-22 11:27] LABS: BILIRUBIN,TOTAL 0.2 mg/dL (0.2-1); BLOOD UREA NITROGEN 13.4 mg/dL (7-18); TOT PROT 6.9 g/dl (6.4-8.2)
[2021-01-22] MEDS ORDERED: QUEtiapine FUMARATE 100 MG TABLET (FP) PO SCH (22:00)
[2021-01-22] MEDS ORDERED: DIVALPROEX SODIUM 500 MG TABLET E.C. PO SCH (22:00)
[2021-01-23] MEDS ORDERED: methaDONE HCL 10 MG TABLET PO SCH (06:00)
== END 2021-01-22 11:52 | disposition other institution (70) | DRG 773 ==
LOC: YASAS 10:49 → Y6N 17:09
PROVIDERS: ADMIT Allergy & Immunology; ATTEND Allergy & Immunology
PROC: HZ2ZZZZ Detoxification Services for Substance Abuse Treatment (ICD-10-PCS; principal; 2021-01-21)
DX: F10.230 Alcohol dependence with withdrawal, uncomplicated (principal); F11.23 Opioid dependence with withdrawal; F14.20 Cocaine dependence, uncomplicated; F12.10 Cannabis abuse, uncomplicated; F17.210 Nicotine dependence, cigarettes, uncomplicated; F31.81 Bipolar II disorder; F39 Unspecified mood [affective] disorder; M54.42 Lumbago with sciatica, left side; G89.29 Other chronic pain; Z88.0 Allergy status to penicillin; Z56.0 Unemployment, unspecified; Z59.0 Homelessness
CPT/HCPCS: 36415; 80053; 80164; 85027; 86780; 93005; 93010; C9803; U0003; U0005

== ENCOUNTER 2021-06-26 13:01 | Inpatient (IN) | payer OTHER ==
[2021-06-26] MEDS ORDERED: ACETAMINOPHEN 325 MG TABLET (FP) PO PRN ×2 (14:07)
[2021-06-26] MEDS ORDERED: MAGNESIUM HYDROX 2400MG/30ML ORAL SUSPENSION 30 ML CUP PO PRN (14:07)
[2021-06-26] MEDS ORDERED: BISMUTH SUBSALICYLATE 262 MG/15 ML BTL PO PRN (14:07)
[2021-06-26] MEDS ORDERED: MAG HYDROX/AL HYDROX/SIMETH 30 ML UNIT-DOSE CUP PO PRN (14:07)
[2021-06-26] MEDS ORDERED: MAGNESIUM CITRATE 300 ML BOTTLE PO PRN (14:07)
[2021-06-26] MEDS ORDERED: ONDANSETRON *ODT* 4 MG TABLET SL PRN (14:07)
[2021-06-26] MEDS ORDERED: methaDONE HCL 10 MG TABLET (FOR DETOX USE ONLY) PO ONE (14:07)
[2021-06-26] MEDS ORDERED: cloNIDine HCL 0.1 MG TABLET PO PRN (14:07)
[2021-06-26] MEDS ORDERED: IBUPROFEN 400 MG TABLET (FP) PO PRN (14:07)
[2021-06-26] MEDS ORDERED: MENTHOL/PHENOL 1 EACH UD MM PRN (14:07)
[2021-06-26] MEDS ORDERED: NICOTINE 10 MG CARTRIDGE (INHALER) IH PRN (14:07)
[2021-06-26 15:42] VITALS: BMI 24.7
[2021-06-26] MEDS ORDERED: methaDONE HCL 10 MG TABLET (FOR DETOX USE ONLY) ONE (15:50)
[2021-06-26] MEDS: hydrOXYzine PAMOATE 25 MG CAPSULE (FP) PO SCH ×2 (18:28→22:37)
[2021-06-26] MEDS: MELATONIN 5 MG TABLETS PO SCH (22:37)
[2021-06-26] MEDS: THIAMINE HCL 100 MG TABLET (FP) PO SCH (22:37)
[2021-06-26] MEDS: METHOCARBAMOL 500 MG TABLET PO PRN (22:37)
[2021-06-27] MEDS: hydrOXYzine PAMOATE 25 MG CAPSULE (FP) PO SCH ×5 (05:46→23:28)
[2021-06-27] MEDS ORDERED: methaDONE HCL 10 MG TABLET (FOR DETOX USE ONLY) ONE (09:02)
[2021-06-27] MEDS: METHOCARBAMOL 500 MG TABLET PO PRN (09:40)
[2021-06-27] MEDS: PRENATAL VITAMINS W/ FOLIC ACID TABLET (FP) PO SCH (09:41)
[2021-06-27 13:07] LABS: HEMATOCRIT 42.3 % (35.4-49); MCH 26.3 pg (25.7-33.7); MCHC 30.8 g/dl (32.0-35.9); MEAN CELL VOLUME 85.5 fl (80-96); MEAN PLT VOLUME 8.6 fl (7.5-11.1); PLATELET COUNT 322 10^3/uL (134-434); RBC 4.94 M/mm3 (4.00-5.60); RDW 14.9 % (11.9-15.9); WHITE BLOOD COUNT 7.7 K/mm3 (4.0-10.0)
[2021-06-27 13:28] LABS: BLOOD UREA NITROGEN 14.5 mg/dL (7-18)
[2021-06-27 13:29] LABS: CREATININE 0.9 mg/dL (0.55-1.3); TOT PROT 6.9 g/dl (6.4-8.2)
[2021-06-27 13:31] LABS: BILIRUBIN,TOTAL 0.2 mg/dL (0.2-1)
[2021-06-27] MEDS: THIAMINE HCL 100 MG TABLET (FP) PO SCH (23:01)
[2021-06-27] MEDS: QUEtiapine FUMARATE 100 MG TABLET (FP) PO SCH (23:28)
[2021-06-27] MEDS: MELATONIN 5 MG TABLETS PO SCH (23:28)
[2021-06-28] MEDS: hydrOXYzine PAMOATE 25 MG CAPSULE (FP) PO SCH ×5 (06:14→22:08)
[2021-06-28] MEDS ORDERED: methaDONE HCL 10 MG TABLET (FOR DETOX USE ONLY) PO ONE (10:00)
[2021-06-28] MEDS: PRENATAL VITAMINS W/ FOLIC ACID TABLET (FP) PO SCH (10:27)
[2021-06-28] MEDS: METHOCARBAMOL 500 MG TABLET PO PRN (10:27)
[2021-06-28] MEDS: THIAMINE HCL 100 MG TABLET (FP) PO SCH (22:08)
[2021-06-28] MEDS: QUEtiapine FUMARATE 100 MG TABLET (FP) PO SCH (22:08)
[2021-06-28] MEDS: MELATONIN 5 MG TABLETS PO SCH (22:09)
[2021-06-29] MEDS: hydrOXYzine PAMOATE 25 MG CAPSULE (FP) PO SCH ×5 (06:16→22:37)
[2021-06-29] MEDS ORDERED: methaDONE HCL 10 MG TABLET (FOR DETOX USE ONLY) ONE (08:59)
[2021-06-29] MEDS: PRENATAL VITAMINS W/ FOLIC ACID TABLET (FP) PO SCH (09:51)
[2021-06-29] MEDS: MELATONIN 5 MG TABLETS PO SCH (22:38)
[2021-06-29] MEDS: THIAMINE HCL 100 MG TABLET (FP) PO SCH (22:38)
[2021-06-29] MEDS: QUEtiapine FUMARATE 100 MG TABLET (FP) PO SCH (22:38)
[2021-06-30] MEDS: hydrOXYzine PAMOATE 25 MG CAPSULE (FP) PO SCH (05:37)
[2021-06-30 09:20] VITALS: BP 129/78; PULSE 80; TEMP 97.1
[2021-06-30] MEDS ORDERED: methaDONE HCL 10 MG TABLET (FOR DETOX USE ONLY) PO ONE (10:00)
== END 2021-06-30 09:50 | disposition home or self-care (01) | DRG 773 ==
LOC: YASAS 13:01 → Y3N 15:58
PROVIDERS: ADMIT Allergy & Immunology; ATTEND Allergy & Immunology
PROC: HZ2ZZZZ Detoxification Services for Substance Abuse Treatment (ICD-10-PCS; principal; 2021-06-26)
DX: F11.23 Opioid dependence with withdrawal (principal); F10.20 Alcohol dependence, uncomplicated; F14.20 Cocaine dependence, uncomplicated; F12.20 Cannabis dependence, uncomplicated; F17.210 Nicotine dependence, cigarettes, uncomplicated; F19.282 Other psychoactive substance dependence with psychoactive substance-induced sleep disorder; F19.24 Other psychoactive substance dependence with psychoactive substance-induced mood disorder; F31.9 Bipolar disorder, unspecified; F39 Unspecified mood [affective] disorder; M54.42 Lumbago with sciatica, left side; Z88.0 Allergy status to penicillin; Z56.0 Unemployment, unspecified; Z59.00 Homelessness unspecified
CPT/HCPCS: 36415; 80053; 85027; 86780; C9803; U0003; U0005